=== PATIENT | male | born 1990 | race Two or more races ===

== ENCOUNTER 2022-07-28 21:45 | Emergency (ER) | payer SELFPAY ==
[~2022-07-28] VITALS: Ht 170.2 cm; Wt 72.0 kg
[2022-07-28] MEDS ORDERED: HYDROcodone-ACET 5/325MG TAB PO ONE (22:45)
[2022-07-29 00:24] VITALS: BP 129/73
[2022-07-29] MEDS ORDERED: HYDR-4902 PO (01:47)
== END 2022-07-29 00:26 | disposition home or self-care (01) ==
LOC: EDBD 21:45 → ER 21:48
DX: S06.891A Other specified intracranial injury with loss of consciousness of 30 minutes or less, initial encounter (principal); S00.83XA Contusion of other part of head, initial encounter; W22.8XXA Striking against or struck by other objects, initial encounter; Y93.89 Activity, other specified; Y92.89 Other specified places as the place of occurrence of the external cause; Y99.8 Other external cause status
CPT/HCPCS: 70450; 70486; 72125